=== PATIENT | male | born 1990 | race Asian ===

== ENCOUNTER 2017-07-26 22:52 | Emergency (ER) | payer OTHER ==
[~2017-07-26] VITALS: Ht 180.3 cm; Wt 79.4 kg
[2017-07-26 22:56] VITALS: Ht 180.3 cm; Wt 79.4 kg
[2017-07-27] MEDS ORDERED: OXYCODONE IR HOME PACK PO ONE (00:45)
[2017-07-27] MEDS ORDERED: OXYC1TAB3 PO (00:51)
--- NOTE | 2017-07-27 00:53 | EMERGENCY ROOM VISIT NOTE ---
History First contact with patient: 22:58 Chief Complaint: ARM PAIN Stated Complaint: BROKEN R ARM History of Present Illness The patient is a 27 year old male who presents to the Emergency Room with complaints of an injury to his right arm. The patient reports that he was arm wrestling with a friend and felt a snapping sensation in his right upper arm. He has had pain since then and rates the discomfort 9/10. He has not taken any medication for pain. He denies any numbness or weakness. He denies any previous injuries to this arm. Review of Systems A complete 10 point review of systems was reviewed with the patient with pertinent positives and negatives as per history of present illness. All else were negative. Past Medical/Surgical History Medical Problems: (1) No significant past medical history Surgical Problems: (1) No significant past surgical history Social History Smoking Status: Current Every Day Smoker Marital Status: single Housing Status: lives with roommate Occupation Status: [employer] student Current/Historical Medications Scheduled PRN Oxycodone Ir (Roxicodone Ir), 1-2 TAB PO Q4H PRN for Pain Physical Exam Vital Signs Date Time Temp Pulse Resp B/P (MAP) Pulse Ox O2 Delivery O2 Flow Rate FiO2 07/27/17 01:44 36.7 72 18 122/64 98 07/27/17 00:04 68 18 125/61 98 Room Air 07/26/17 22:56 36.7 92 18 123/68 100 Room Air Physical Exam VITALS: Vitals are noted on the nurse's note and reviewed by myself. Vital signs stable. GENERAL: This is a 27 year old male, in no acute distress, nondiaphoretic, well- developed well-nourished. SKIN: No lacerations or abrasions MUSCULOSKELETAL: There is obvious deformity of the right humerus. There is tenderness to palpation of the right distal humerus. Full range of motion of the elbow and shoulder. Radial pulse 2+. 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 NEURO: Patient was alert and oriented to person place and time. Normal sensation over the right upper extremity. Medical Decision & Procedures ER Provider Diagnostic Interpretation: RIGHT HUMERUS: There is a spiral/oblique fracture of the distal one third of the right humerus displaying approximately 45 of angulation. Interpreted by myself and reviewed by my attending. Medications Administered Medications (Trade) Dose Ordered Sig/Koko Route Start Time Stop Time Status Last Admin Dose Admin Oxycodone HCl (Roxicodone Immediate Rel 5MG [facility] PO 07/27/17 00:45 07/27/17 00:46 DC 07/27/17 01:32 1 HOMEPACK ED Course The patient was evaluated as above. Labs were drawn and IV access was obtained. Humerus x-ray was performed and read by radiology as above. Patient was reevaluated and findings were discussed. Case was discussed with Dr. Fuller, the on-call physician for orthopedics. He recommended splint placement and follow up in the office. Ortho-Glass splint was applied by the ED fresh foods technician under my supervision. Neurovascular status was reassessed by myself and was intact. Discharge instructions were reviewed with the patient. The patient verbalized understanding of my assessment and treatment plan and was discharged home in good condition. Medical Decision Differential diagnosis includes fracture, dislocation, contusion, sprain,among others. The patient is a 27-year-old male who presents today complaining of an injury to his right upper arm. X-ray showed angulated fracture of the distal humerus. He is neurovascularly intact. Case was discussed with orthopedics who recommended splinting and follow-up in office. Patient was placed in a coaptation splint and arm sling. He was given a home pack and prescription of pain medication. He will follow-up with orthopedics as an outpatient. He understands to return for worsening pain, numbness, weakness or other new/ concerning symptoms. [place] Drug Monitoring Program Search Results: patient reviewed within database, no issues identified Medication Reconcilliation Current Medication List: was personally reviewed by me Blood Pressure Screening Patient's blood pressure: Normal blood pressure Impression Primary Impression: Humerus shaft fracture Departure Information Dispostion Home / Self-Care Condition GOOD Prescriptions Oxycodone Ir (Roxicodone Ir) 5 Mg Tab 1-2 TAB PO Q4H Y for Pain, #20 TAB For Initial Treatment Prov: Delia Marvin .THAI 07/27/17 Referrals [facility] (PCP) Waldo Fuller M.D. Patient Instructions My [facility] Additional Instructions You have been treated in the Emergency Department for a fracture of your humerus. You have been prescribed Oxy IR to be used for pain control. This is a narcotic medication. You cannot drive or consume alcohol while on this medicine. This medicine should only be used for pain that cannot be controlled with over-the- counter pain medicines. For pain control, you can use the following zbya-lml-eajpyls medicines (if >12 yo): - Regular strength (325mg/tab) Tylenol (acetaminophen) 2 tabs every 4-6 hours as needed. Do not exceed 12 tablets in a 24 hour period. Avoid taking more than 4 grams (4000 mg) of Tylenol per day. This includes any other sources of acetaminophen you may take on a regular basis. - Regular strength (200 mg/tab) Advil (ibuprofen) 1-2 tabs every 4-6 hours as needed. Do not exceed a dose of 3200 mg per day. If this is a recent injury (<24 hrs), ice can be applied to the area of pain for the first 3 days to help decrease pain and inflammation. You have been provided the number for an Orthopaedic Surgeon. You should call this number as soon as possible to establish a follow-up visit from today's Emergency Department visit. Keep the splint in place until evaluated by Orthopedics. Do NOT get the splint wet. Return to the Emergency Department if your current symptoms worsen despite treatment course outlined above, or if you develop any of the following symptoms : worsening pain despite the above treatment course or new onset of numbness or tingling of the arm. Problem Qualifiers Primary Impression: Humerus shaft fracture Encounter type: initial encounter Fracture type: closed Fracture morphology : spiral Fracture alignment: displaced Laterality: right Qualified Codes: S42.341A - Displaced spiral fracture of shaft of humerus, right arm, initial encounter for closed fracture
[2017-07-27 01:44] VITALS: BP 122/64; PULSE 72; TEMP 36.7; O2SAT 98
--- NOTE | 2017-07-27 08:22 | DIAGNOSTIC IMAGING REPORT ---
R HUMERUS MIN 2 VIEWS ROUTINE CLINICAL HISTORY: Right upper arm injury. COMPARISON: None FINDINGS: Note is made of an oblique comminuted, mildly displaced fracture of the distal shaft of the right humerus. Moderate angulation is noted at the level the fracture. No additional fractures of the right humerus are identified. Alignment of the right shoulder and elbow appears anatomic. No underlying lesion is identified by radiography. IMPRESSION: Acute mildly displaced comminuted fracture of the distal shaft of the right humerus. Electronically signed by: Jose Eisenberg M.D. 07/27/2017 8:20 AM Dictated Date/Time: 07/27/2017 8:18 AM
== END 2017-07-27 01:45 | disposition home or self-care (01) ==
LOC: C.EDB 22:53
DX: S42.341A Displaced spiral fracture of shaft of humerus, right arm, initial encounter for closed fracture (principal); Y93.83 Activity, rough housing and horseplay; F17.200 Nicotine dependence, unspecified, uncomplicated